=== PATIENT | female | born 1930 ===

== ENCOUNTER 2017-11-12 08:35 | Day surgery (SDC) | payer OTHER ==
[~2017-11-12 08:35] MED LIST: AVALIDE 300-12.1 TAB PO; COUMADIN2 MG PO; DIOVAN HCT 320/1 TA2 PO; FOSAMAX70 MG PO; LIPITOR 10MG; LIPITOR20 MG PO; NEURONTIN800 MG PO; SYNTHROID PO; TEGRETOL200 MG PO; TENORMIN25 MG PO; XANAX XR0.5 MG PO; XARELTO20 MG PO; [UNRECOGNIZED DRUG - OTHER]
== END 2017-11-12 14:20 | disposition home or self-care (01) ==
LOC: CIR.AMB 08:35
DX: G50.0 Trigeminal neuralgia (principal)